=== PATIENT | male | born 1995 | race Caucasian/White ===

== ENCOUNTER 2017-07-28 13:03 | Emergency (ER) | payer OTHER, MEDICAID ==
[2017-07-28 14:21] VITALS: BP 127/71
--- NOTE | 2017-07-28 14:45 | UC ---
Respiratory Complaint HPI - HPI Summary HPI Summary: C/O productive cough over the last 3 weeks. Does smoke. Hoarse voice. Chills and sweats. Sore throat.Some sinus pain. - History of Current Complaint Chief Complaint: UCRespiratory Stated Complaint: UPPER RESPITORY, NO VOICE,COUGH Time Seen by Provider: 07/28/17 14:35 Hx Obtained From: Patient Onset/Duration: Gradual Onset, Lasting Weeks - 3, Worse Since - onset Timing: Constant Severity Initially: Mild Severity Currently: Moderate Pain Intensity: 8 Aggravating Factors: Exertion Alleviating Factors: Nothing Associated Signs And Symptoms: Positive: Chills, Pleuritic Chest Pain, Hoarseness Related History: Seasonal Allergies - Allergies/Home Medications Allergies/Adverse Reactions: Allergies Allergy/AdvReac Type Severity Reaction Status Date / Time amoxicillin Allergy Hives Verified 07/28/17 14:20 PMH/Surg Hx/FS Hx/Imm Hx Previously Healthy: Yes - Surgical History Surgical History: None - Family History Known Family History: Negative: Hypertension - Social History Occupation: Employed Full-time Lives: With Family Alcohol Use: Occasionally Substance Use Type: None Smoking Status (MU): Light Every Day Tobacco Smoker Type: Cigarettes Cessation Counseling: Patient Advised to Stop Review of Systems Constitutional: Chills, Fatigue ENT: Sore Throat, Sinus Congestion Respiratory: Cough Cardiovascular: Chest Pain - just with coughing. Neurological: Headache Is Patient Immunocompromised?: No All Other Systems Reviewed And Are Negative: Yes Physical Exam Triage Information Reviewed: Yes Appearance: No Pain Distress, Well-Nourished, Ill-Appearing Vital Signs: Initial Vital Signs Temp 97.9 F 07/28/17 14:17 Pulse 59 07/28/17 14:17 Resp 18 07/28/17 14:17 BP 127/71 07/28/17 14:17 Pulse Ox 100 07/28/17 14:17 Vital Signs Reviewed: Yes Eyes: Positive: Conjunctiva Clear ENT: Positive: Pharynx normal, Nasal congestion, TMs normal Neck exam: Normal Respiratory: Positive: Wheezing - expiratory wheezing with coughing. Cardiovascular Exam: Normal Musculoskeletal Exam: Normal Neurological Exam: Normal Psychological Exam: Normal Skin Exam: Normal UC Diagnostic Evaluation - Laboratory O2 Sat by Pulse Oximetry: 100 - Radiology Xray Interpretation: No Acute Changes Radiology Interpretation Completed By: ED Physician Respiratory Course/Dx - Differential Dx/Diagnosis Differential Diagnosis/HQI/PQRI: Asthma, Lower Resp Infection, Sinusitis Provider Diagnoses: Acute URI. Acute Bronchospasm. Acute sinusitis Discharge - Sign-Out/Discharge Documenting (check all that apply): Discharge/Admit/Transfer - Discharge Plan Condition: Stable Disposition: HOME Prescriptions: predniSONE TAB* [Deltasone TAB*] 20 mg PO DAILY #18 tab Sulfamethox/Trimethoprim DS* [Bactrim DS 800/160 TAB*] 1 tab PO BID #20 tab Patient Education Materials: Sinusitis (ED), Sulfamethoxazole/Trimethoprim (By mouth), Bronchospasm (ED), Prednisone (By mouth) Forms: *Work Release Referrals: Jeannie Castellanos [Primary Care Provider] - Additional Instructions: Smoking Cessation Tricks. 1. Cut down by 1 cigarette per day every 2-3 days. Write the number of smokes for that day on the calendar. 2. Identify triggers to smoking: after meals, on the phone, in the car, with coffee, on breaks at work, etc. 3. Formulate a plan with a behavior to replace the smoking. Fireballs in the car , doodle pad on the phone, flavored creamer for the coffee, go for a walk after a meal or on break at work. 4. For stress smokes do deep breathing relaxation. Breath deep in through the nose hold the breath in for a few seconds then breath out slowly through the mouth. - Billing Disposition and Condition Condition: STABLE Disposition: HOME
--- NOTE | 2017-07-28 14:50 | RAD ---
Indication: Cough. 2 views of the chest including dual energy PA views demonstrate no mediastinal shift. Heart is of normal size and configuration. Lung schmitz are clear. IMPRESSION: No active cardiopulmonary disease is noted.
== END 2017-07-28 15:15 | disposition home or self-care (01) ==
LOC: UCCORT 13:03
DX: J06.9 Acute upper respiratory infection, unspecified (principal); J98.01 Acute bronchospasm; J01.90 Acute sinusitis, unspecified; F17.210 Nicotine dependence, cigarettes, uncomplicated; Z88.0 Allergy status to penicillin
CPT/HCPCS: 71046; 99202; G0463